=== PATIENT | male | born 1980 | race Caucasian/White ===

== ENCOUNTER 2025-02-28 01:40 | Emergency (ER) | payer BC ==
[~2025-02-28] VITALS: Ht 182.9 cm; Wt 86.0 kg
[2025-02-28 01:51] VITALS: BP 156/96; RESP 18; TEMP 36.9; O2SAT 97
[2025-02-28 02:03] VITALS: PULSE 97; O2SAT 97
[2025-02-28] MEDS ORDERED: AMOX1TAB16 MT (02:11)
[2025-02-28] MEDS ORDERED: TRIMO EACHEYE (02:11)
== END 2025-02-28 02:57 | disposition home or self-care (01) ==
LOC: ER 02:56
DX: H10.89 Other conjunctivitis (principal)
CPT/HCPCS: 99283